=== PATIENT | male | born 1995 | race Caucasian/White ===

== ENCOUNTER 2018-07-15 16:09 | Emergency (ER) | payer SELFPAY ==
--- NOTE | 2018-07-15 16:21 | EDPHY ---
H & P Time Seen by Provider: 07/15/18 16:19 HPI/ROS: CHIEF COMPLAINT: Abnormal behavior HISTORY OF PRESENT ILLNESS: The patient is brought in from the detox center with abnormal behavior. He reportedly was brought there last night with intoxication. The patient recently moved to [place], [place] from [place]. He reportedly has been here for 5 days. [facility] the patient was acting bizarrely, reporting concerns about frogs being in the drinking water. The patient denies using any recreational drugs but is somewhat aloof when answering this question. He reports a prior history of bipolar mood disorder. He takes no medications for this condition. The patient denies suicidal or homicidal ideation. REVIEW OF SYSTEMS: A comprehensive 10 point review of systems is otherwise negative aside from elements mentioned in the history of present illness. Source: Patient Exam Limitations: No limitations - Medical/Surgical History PMH: Past medical history: Bipolar mood disorder - Family History Significant Family History: No pertinent family hx - Social History Alcohol Use: Occasionally - Physical Exam Exam: General Appearance: Alert, no distress Eyes: Pupils equal and round no pallor or injection ENT, Mouth: Mucous membranes moist Respiratory: There are no retractions, lungs are clear to auscultation Cardiovascular: Regular rate and rhythm Gastrointestinal: Abdomen is soft and nontender, no masses, bowel sounds normal Neurological: A&O, normal motor function, normal sensory exam, normal cranial nerves Skin: Warm and dry, no rashes Musculoskeletal: Neck is supple nontender Extremities: symmetrical, full range of motion Psychiatric: Somewhat confused, cooperative, tangential, some delusional thoughts, denies suicidal or homicidal ideation Constitutional: Initial Vital Signs Temperature (C) 36.7 C 07/15/18 16:09 Heart Rate 87 07/15/18 16:09 Respiratory Rate 16 07/15/18 16:09 Blood Pressure 134/71 H 07/15/18 16:09 O2 Sat (%) 97 07/15/18 16:09 O2 Delivery Mode Room Air Allergies/Adverse Reactions: No Known Allergies Allergy (Unverified 07/15/18 16:25) Home Medications: Medication Instructions Recorded NK [No Known Home Meds] 07/15/18 Medical Decision Making ED Course/Re-evaluation: Patient was medically cleared for psychiatric evaluation. The patient was seen by the machine tank operator. She felt his presentation was consistent with alcohol intoxication and cocaine use. The patient is no longer delusional or psychotic. He is not suicidal or homicidal. Patient contracts for safety and would like to be discharged to the house that he is [place] and [place]. She has confirm that the patient does back to live with roommates. The patient will be discharged from the emergency department with customary aftercare instructions and return precautions. Differential Diagnosis: Differential diagnosis considered includes bipolar mood disorder, substance abuse, dehydration, metabolic derangement - Data Points Laboratory Results: Laboratory Results 07/15/18 16:51 07/15/18 16:51 07/15/18 07/15/18 07/15/18 16:51 16:51 16:51 WBC 7.02 10^3/uL 10^3/uL (3.80-9.50) RBC 5.35 10^6/uL 10^6/uL (4.40-6.38) Hgb 15.9 g/dL g/dL (13.7-17.5) Hct 47.0 % % (40.0-51.0) MCV 87.9 fL fL (81.5-99.8) MCH 29.7 pg pg (27.9-34.1) MCHC 33.8 g/dL g/dL (32.4-36.7) RDW 13.4 % % (11.5-15.2) Plt Count 260 10^3/uL 10^3/uL (150-400) MPV 9.1 fL fL (8.7-11.7) Neut % (Auto) 71.8 % % (39.3-74.2) Lymph % (Auto) 21.5 % % (15.0-45.0) [place] % (Auto) 5.8 % % (4.5-13.0) Eos % (Auto) 0.1 % L % (0.6-7.6) Baso % (Auto) 0.4 % % (0.3-1.7) Nucleat RBC Rel Count 0.0 % % (0.0-0.2) Absolute Neuts (auto) 5.03 10^3/uL 10^3/uL (1.70-6.50) Absolute Lymphs (auto) 1.51 10^3/uL 10^3/uL (1.00-3.00) Absolute Monos (auto) 0.41 10^3/uL 10^3/uL (0.30-0.80) Absolute Eos (auto) 0.01 10^3/uL L 10^3/uL (0.03-0.40) Absolute Basos (auto) 0.03 10^3/uL 10^3/uL (0.02-0.10) Absolute Nucleated RBC 0.00 10^3/uL 10^3/uL (0-0.01) Immature Gran % 0.4 % % (0.0-1.1) Immature Gran # 0.03 10^3/uL 10^3/uL (0.00-0.10) Sodium 142 mEq/L mEq/L (135-145) Potassium 3.8 mEq/L mEq/L (3.5-5.2) Chloride 104 mEq/L mEq/L (97-110) Carbon Dioxide 30 mEq/l mEq/l (22-31) Anion Gap 8 mEq/L mEq/L (6-14) BUN 14 mg/dL mg/dL (7-23) Creatinine 0.8 mg/dL mg/dL (0.7-1.3) Estimated GFR > 60 Glucose 91 mg/dL mg/dL (70-100) Calcium 9.6 mg/dL mg/dL (8.5-10.4) Urine Opiates Screen NEGATIVE (NEGATIVE) Urine Barbiturates NEGATIVE (NEGATIVE) Ur Phencyclidine Scrn NEGATIVE (NEGATIVE) Ur Amphetamine Screen NEGATIVE (NEGATIVE) U Benzodiazepines Scrn NEGATIVE (NEGATIVE) Urine Cocaine Screen NON-NEGATIVE H (NEGATIVE) U Marijuana (THC) Screen NON-NEGATIVE H (NEGATIVE) Ethyl Alcohol < 10 mg/dL mg/dL (0-10) Departure - Departure Disposition: Home, Routine, Self-Care Clinical Impression: Cocaine abuse Condition: Good Instructions: Cocaine Abuse (ED) Additional Instructions: 1. Please follow-up with the mental health resources provided in the ED today. 2. [facility] does operate a 24/ psychiatric crisis unit located at [address] The telephone number for the 24 hour crisis center is [phone]. 3. Please return to the ED if you are feeling suicidal, having thoughts of harming yourself/others or should you feel unsafe or have worsening symptoms. Referrals: [facility],. [Clinic] - As per Instructions
[2018-07-15 17:07] LABS: PLATELET COUNT 260 10^3/uL (150-400)
[2018-07-15 22:29] VITALS: BP 130/71
--- NOTE | 2018-07-15 23:20 | ASMTTCLDSP ---
TLC Discharge Disposition Disposition: Answers: Discharge If Answers: Yes DISCHARGED: Patient/family given suicide hotline info & SAMHSA brochure? Disposition Notes: Notes: In consultation with [facility] ED physician, Jere Sweeney MD, it was concurred that pt does not appear to meet 27-65 criteria requiring psychiatric hospitalization as pt does not appear to be an imminent risk of harm to self/others/gravely disabled due to a mental illness condition. Pt was offered voluntary mental health admission yet pt declined. Pt stated commitment or ability to keep self safe, denied thoughts of self harm or harm to others. Pt expressed reluctance to follow up with any mental health treatment however pt was provided with resources and encouraged to consider accepting help with substance use behavior which appears to be impacting his daily functioning. Pt was also provided with resource for 24 hour crisis center and encouraged to return to the ED if situation changes where he does not feel safe. Pt was given local hotline information and SAMHSA brochure After an Attempt and encouraged to follow up with [facility]. Discharge Concerns/Recommendations: Notes: Pt was referrred to [facility] through [facility]. Date Signed: 07/15/2018 11:19 PM Electronically Signed By:Mildred Patel
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
== END 2018-07-15 22:29 | disposition home or self-care (01) ==
LOC: EDBD → EDUNIT#
DX: F14.10 Cocaine abuse, uncomplicated (principal); F10.920 Alcohol use, unspecified with intoxication, uncomplicated
CPT/HCPCS: 80305; G0480